=== PATIENT | female | born 1985 | race Caucasian/White ===

== ENCOUNTER 2024-04-10 22:22 | Emergency (ER) | payer BC, MEDICAID ==
[~2024-04-10] VITALS: Ht 154.9 cm; Wt 76.0 kg
[2024-04-10 22:28] VITALS: BP 132/79; PULSE 87; RESP 16; TEMP 97.7; O2SAT 96
[2024-04-11] MEDS: LIDOCAINE HCL/PF 1% 10 MG/ML 5ML VIAL INFIL ONE (02:58)
[2024-04-11] MEDS: BACITRACIN ZINC OINT UDPKT TOP ONE (03:00)
[2024-04-11] MEDS: TETANUS, DIPHTHERIA, PERTUSSIS VAC/PF 0.5ML (>10YR OLD) IM ONE (03:02)
== END 2024-04-11 03:15 | disposition home or self-care (01) ==
LOC: ER 22:22
DX: S61.411A Laceration without foreign body of right hand, initial encounter (principal); W25.XXXA Contact with sharp glass, initial encounter; Y93.89 Activity, other specified; Y92.89 Other specified places as the place of occurrence of the external cause; Y99.8 Other external cause status
CPT/HCPCS: 73130; 12002; 99283; 90715; 90471; Z7610 ×2